=== PATIENT | male | born 1970 | race African-American/Black ===

== ENCOUNTER 2017-12-03 11:04 | Emergency (ER) | payer SELFPAY ==
[~2017-12-03] VITALS: Ht 185.4 cm; Wt 105.0 kg
[2017-12-03 11:10] VITALS: BP 148/73
[2017-12-03] MEDS ORDERED: GLIP5TAB12 PO (11:13)
[2017-12-03] MEDS ORDERED: LIDOCAINE HCL 1% 20ML VIAL (Pyxis) INJ MC ONE (13:30)
[2017-12-03] MEDS ORDERED: BACITRACIN ZINC OINT UDPKT TOP ONE (13:30)
[2017-12-03] MEDS ORDERED: LIDOCAINE HCL/PF 1% 10 MG/ML 5ML VIAL ONE (14:53)
== END 2017-12-03 15:41 | disposition home or self-care (01) ==
LOC: ER 11:04
DX: S61.012A Laceration without foreign body of left thumb without damage to nail, initial encounter (principal); W45.8XXA Other foreign body or object entering through skin, initial encounter; Y93.89 Activity, other specified; Y92.9 Unspecified place or not applicable
CPT/HCPCS: 12002; 99283; A4217; J3490; Z7610; 12001